=== PATIENT | female | born 1985 | race Hispanic/Latino ===

== ENCOUNTER 2016-11-10 08:06 | Day surgery (SDC) | payer OTHER ==
[2016-11-10] VITALS (10 sets, daily range): BP systolic 111–141; BP diastolic 64–95; PULSE 78–108; RESP 12–16; O2SAT 93–99
[~2016-11-10] VITALS: Ht 157.5 cm; Wt 101.9 kg
[~2016-11-10 08:06] MED LIST: CeFAZolin Inj 2 GM in IV Premix 1 EACH IV ONE; DIAZ5TAB3 PO; DULO60CA61 PO; Lactated Ringer's 1,000 ML IV ONE; OXYC-465 PO
[2016-11-10] MEDS ORDERED: Phenylephrine/NS 100 mCg/mL 10 mL Syringe IVPUSH ONE (08:07)
[2016-11-10] MEDS ORDERED: Dexamethasone 4 mg/mL Inj ONE (08:07)
[2016-11-10] MEDS ORDERED: Propofol 10,000 mCg/mL 20 mL Inj ONE (08:07)
[2016-11-10] MEDS ORDERED: fentaNYL-PF 50 mCg/mL 2 mL Inj ONE (08:07)
[2016-11-10] MEDS ORDERED: Ondansetron 2 mg/mL 2 mL Inj ONE (08:07)
[2016-11-10] MEDS ORDERED: Lactated Ringer's 500 ML IV PRN (10:46)
[2016-11-10] MEDS ORDERED: Lactated Ringer's 1,000 ML IV SCH (10:46)
--- NOTE | 2016-11-10 10:46 | PCM.HPANE ---
Patient Data Date of Service: Nov 10, 2016 (1020) Surgeon Admitting Provider: Attending Provider:Negro Foster DO Primary Care Physician:Alberto Bailey MD Other Provider:Refugio Mulligan Anesthesia Reason for Visit Right Hip Avn Ht/WT & BMI Height (Feet): 5 Height (Inches): 2 Weight (Kilograms): 101.9 Body Mass Index 0.00 Allergies Coded Allergies: No Known Allergies (Unverified Allergy, Unknown, 09/13/14) Past Anesthesia History Anesthesia History: Denies:: Abnormal Airway, Anesthesia Reactions (no prior surgery), Difficult Intubation, Fam Anesthesia Reaction Diabetes History Hx Diabetes?: No MRSA MRSA: No Medications Hypertension Medication: No Home Meds Incl Beta Albina: No Reported Medications oxyCODONE-Acetaminophen 7.5-325 mg 1 Each Tablet1 Tab PO TID PRN For Pain Ref 0 11/05/16 Diazepam 5 Mg Tablet5 Mg PO BID PRN For Anxiety Ref 0 11/05/16 Duloxetine 60 Mg Capsule.dr60 Mg PO DAILY Ref 0 11/05/16 Discontinued Reported Medications Vit#96/Ferrous Fum/FA ( Tablet)1 Each Tablet1 Each PO DAILY 09/15/14 Discontinued Scripts [Hydrocodone/Acetaminophen] ([place] 5-325)1 TAB TABLET No Conflict Check1-2 Tab PO Q4H PRN For Pain #15 TABLET Prov:Veronica Crockett MD 09/16/14 [Ibuprofen] (Motrin)800 MG TABLET No Conflict Froql030 Mg PO Q6H PRN For Pain # 15 TABLET Prov:Veronica Crockett MD 09/16/14 History History of ENT Problems?: No HEENT History: Denies:: Abnormal Airway Cataracts Difficult Intubation Dysphagia Glaucoma Hearing Problem Sinus Problem TMJ Hx of Heart Problems?: No Cardiovascular History: Denies:: AICD Abdominal Aortic Aneurism Atrial Fibrillation Edema Heart Murmur Hypertension (only during ) Irregular Heartbeat Pacemaker Peripheral Vascular Hx of Respiratory Problem?: No Respiratory History: Denies:: Asthma COPD Emphysema Oxygen Administration Pneumonia Tuberculosis Use of C-PAP Machine Use of Inhalers / NEBS Hx Neurologic Problems?: No Neurological History: Positive for:: Headaches (several times weekly) Denies:: Alzheimer's Disease CVA Dementia Dizziness Multiple Sclerosis Parkinson's Disease Seizures TIA Hx of GI Problems?: No Gastrointestinal History: Denies:: Cirrhosis Gall Bladder Disease Gastrointestinal Bleeding Heartburn Hepatitis Hiatal Hernia Liver Disease Rectal Bleeding Hx of Problems?: No Genitourinary History: Denies:: Kidney Stones Urinary Tract Infection Female Hx: Denies:: Currently Problems with Breasts? Skin History: Denies:: History Skin Disorders? Pressure Ulcers Hx Musculoskeletal Problems?: Yes Musculoskeletal History: Positive for:: Back Injury Degenerative Joint Musculoskeletal Trauma (right hip current admission problem- AVN) Denies:: Fibromyalgia Osteoarthritis Rheumatoid Arthritis Hx of Psycho/Social Problems?: Yes Psycho Social History: Positive for:: Anxiety Hx Depression Hx Surgeries?: No Hx Any Other Health Problems?: No Other History: Denies:: Cancer Thyroid Disease History Blood Transfusions: Positive for:: Accept Blood Products? Denies:: Blood Transfusions Hx Diabetes: No Hx Alcohol Use: YesAlcoholic Drinks Per Day: holidaysHx Substance Use: No Smoking Status: Never Smoker Have You Smoked inLast 12 mo: Yes (3 cigarettes daily) Stop/Bang S-Snoring: Do You Snore Loudly: No T-Tired: feel tired, fatigued: Yes O-Obsered: Observed not breath: No P-Blood Pressure: treated: No B- Body Mass Index > 35 kg/m2: Yes A- Age over 50: No N- Neck Large Circumference: Yes G- Gender Male: No VIMAL Total Score: 3 VIMAL Risk Assessment: Low Risk, <3 Yes Risk Assessment Category Category 1A: Patient has history of documented sleep apnea, and HAS NOT received any narcotic, sedative or anesthesia administration during this stay. Category 1B: Patient has history of documented sleep apnea, and HAS received any narcotic , sedative or anesthesia administration during this stay Category 2: Patient has SUSPECTED Obstructive Sleep Apnea, and HAS received any narcotic , sedative or anesthesia administration during this stay. Category 3: Patient has SUSPECTED Obstructive Sleep Apnea and HAS NOT received narcotic, sedative or anesthesia administration during this stay. Category 4: Outpatient in Procedural Areas with known sleep apnea or who screen positive for High Risk via the STOP/BANG questionnaire. Exam Exam Vital Signs Vital Signs Date Time Temp Pulse Resp B/P Pulse Ox O2 Delivery O2 Flow Rate FiO2 11/10/16 08:29 36.2 87 16 120/74 98 Room Air General Appearance: Alert, Oriented X3, Cooperative HEENT/AIRWAY: MP 2 Lungs: Clear to Auscultation Heart: Exam Unremarkable Meds/Labs/Diagnostics Admission Meds Current Medications Lactated Ringer's (Lr) 1,000 ml @ 120 mls/hr Q8H20M ONCE IV Last administered on 11/10/16t 08:29; Start 11/10/16 at 05:00; Stop 11/10/16 at 13:19 Plan Impression Patient chart reviewed, patient interviewed and anesthestic plan with risks, benefits, and alternatives discussed, and informed consent obtained. NPO Status: 2330 11/09 ASA Physical Status: ASA2 Mod Systemic Disease Anesthetic Plan: GA Bene/Risks/Altern/Consents: Yes HP Complete Prior to Induction: Yes Alistair Patiño MD Nov 10, 2016 10:46
[2016-11-10] MEDS ORDERED: Phenylephrine 10,000 mCg/mL Inj IVPUSH PRN (10:50)
[2016-11-10] MEDS ORDERED: EPHEDrine Sulfate 50 mg/mL Inj IVPUSH PRN (10:50)
[2016-11-10] MEDS ORDERED: Ondansetron 2 mg/mL 2 mL Inj IVPUSH PRN (10:50)
[2016-11-10] MEDS ORDERED: Dexamethasone 4 mg/mL Inj IVPUSH PRN (10:50)
[2016-11-10] MEDS ORDERED: MetoCLOpramide 5 mg/mL 2 mL Inj IVPUSH PRN (10:50)
[2016-11-10] MEDS ORDERED: Ropivacaine-PF 0.5% 30 mL Inj INFILTRATE ONE (11:00)
--- NOTE | 2016-11-10 11:59 | PCM.ANEP2 ---
Post Anesthesia Evaluation ASA/CMS Post Anesthesia VS in Patient's Normal Range?: Yes Resp Stable; Airway Patent?: Yes CV Function & Hydration Stable: Yes Mental Status Recovered?: Yes Pain control Satisfactory?: Yes N/V Control Satisfactory?: Yes Alistair Patiño MD Nov 10, 2016 11:59
--- NOTE | 2016-11-10 11:59 | PCM.ANEP1 ---
Post Anesthesia Phase 1 PACU Phase 1 Assessment Date of Service: Nov 10, 2016 (1020) Vital Signs 141/95, 94%, 100, 16, 36.4 Vital Signs Date Time Temp Pulse Resp B/P Pulse Ox O2 Delivery O2 Flow Rate FiO2 11/10/16 08:29 36.2 87 16 120/74 98 Room Air Anesthetic Administered: GA Level of Alertness: Awake, talking PETERSON's with Equal Strength: Yes Pain: No Nausea or Vomiting: No Oxygen Delivery: Simple Mask Lungs: Clear to Auscultation Dermatome Level: Full Sensation Summary UNEVENTFUL GA Alistair Patiño MD Nov 10, 2016 11:58
[2016-11-10] MEDS: fentaNYL-PF 50 mCg/mL 2 mL Inj IVPUSH PRN ×2 (12:00→12:15)
[2016-11-10] MEDS: HYDROmorphone 1 mg/mL Inj IVPUSH PRN ×3 (12:00→12:25)
[2016-11-10] MEDS ORDERED: hydrOXYzine Pamoate 25 mg Capsule PO PRN (12:10)
[2016-11-10] MEDS ORDERED: oxyCODONE-Acetamin 10-325 mg Tablet PO PRN (12:10)
--- NOTE | 2016-11-10 14:05 | NUR ---
Evaluation completed. Please go to "Notes" then click on "Assessments and Notes" (bottom left corner of screen). Then select appropriate discipline tab on top of screen.
--- NOTE | 2016-11-11 00:10 | OP ---
[address] [address] OPERATIVE REPORT PATIENT: JODI TRIANA : 1985 MR#: [id number] ADMIT: 11/10/2016 JOB ID: [id number] DATE OF SURGERY: 11/10/2016 PREOPERATIVE DIAGNOSIS(ES): Right hip avascular necrosis. POSTOPERATIVE DIAGNOSIS(ES): Right hip avascular necrosis. PROCEDURE: Right hip drilling/cord decompression. SURGEON: Negro Foster DO. COOKER CLEANER: None. INDICATIONS: The patient is a 30-year-old female who developed right hip pain during about two years ago, has continued to have problems with pain in the hip and groin, and has been having to take narcotic pain medication for this. She had an AVN which was consistent with hip avascular necrosis. We discussed treatment options for this and she would like to proceed with hip drilling/cord decompression in order to promote blood flow and revascularization of the femoral head. We discussed the risks, benefits and possible complications of surgery including, but not limited to, injury to nerves and vessels, infection, bleeding, incomplete relief of symptoms, stiffness, need for additional procedures. The patient had good understanding. All questions were answered. She wished to proceed. PROCEDURE IN DETAIL: The patient was brought to the operating room. She was given a preoperative antibiotic and general anesthetic. Placed onto the fracture table. The right hip was sterilely prepped and draped. An incision was made over the lateral hip and dissection was carefully carried through subcutaneous tissue. The iliotibial band was incised in line with skin incision. Dissection was carried down onto the femur. Care was taken to ensure that the pins were placed superior to the lesser trochanter and these were angled so as to penetrate on the posterior lateral cortex of the femur and enter into the anterior superior portion, where she had the avascular necrosis. The area of avascular necrosis was actually visible on image intensification to some degree more so than on her MRI scan, and I aimed three guide pins into this area using biplane fluoroscopy. I then over-reamed with the 7.3 cannulated screw set drill on two of the three pins. The third most anterior one I was concerned about perforating the cortex of the femoral neck and elected not to ream, but did feel that the pin entered into the area of avascular necrosis; and therefore, we created new vascular channels for inflow and healing. The pins were removed. The wound was irrigated and then closed with 0-Vicryl to close the iliotibial band, the subcu was closed with 2-0 Vicryl, and the skin was closed with rosalinda. Naropin was added as an adjunct local anesthetic. Sterile dressings were applied. Patient tolerated the procedure well. Blood loss was 50 cc. POSTOPERATIVE PROTOCOL: I would like the patient to remain toe-touch weightbearing on the right lower extremity for a period of six weeks. She should have no alcohol or tobacco, and no anti-inflammatories for at least six weeks, preferably three months. She was given a prescription for Percocet 10/325 for pain.
== END 2016-11-10 23:59 | disposition home or self-care (01) ==
LOC: SAS 08:06
PROVIDERS: ATTEND Orthopaedic Surgery
DX: M87.051 Idiopathic aseptic necrosis of right femur (principal)
CPT/HCPCS: 76001; 97161; J0690; J1100; J1170; J2250; J2370; J2405; J2795; J3010; J7120; Q0177; S2325

== ENCOUNTER 2016-12-09 17:42 | Inpatient (IN) | payer OTHER ==
[~2016-12-09] VITALS: Ht 160 cm; Wt 105.5 kg
[~2016-12-09 17:42] MED LIST changes: -CeFAZolin Inj 2 GM in IV Premix 1 EACH IV ONE; -Lactated Ringer's 1,000 ML IV ONE
[2016-12-09 17:50] VITALS: BP 149/102; PULSE 108; RESP 22; O2SAT 99
[2016-12-09] MEDS ORDERED: Ondansetron 2 mg/mL 2 mL Inj IVPUSH ONE (18:25)
[2016-12-09 18:35] LABS: BASOPHILS % (AUTO) 0.3 % (0-3); EOSINOPHILS % (AUTO) 3.8 % (0-5); MONOCYTES % (AUTO) 5.1 % (4-12); Mean Corpuscular Hemoglobin 29.2 pg (27.0-35.0); Mean Corpuscular Volume 86.8 fL (81-100); NEUTROPHILS % (AUTO) 55.4 % (40-74); Platelet Count 284 bil/L (150-400)
--- NOTE | 2016-12-09 18:35 | ED.REPORT ---
HPI-Hip/Pelvis Prob/Inj Date of Service Dec 09, 2016 ED Provider: Thuan Mcqueen MD A 30 year old female with a history of right avascular necrosis presents to the ED via EMS complaining of pain in her right hip onset earlier this evening. The patient was putting their son in their car seat when he stood up and was going to fall out of the car. The patient bent over to catch her son and suddenly heard a popping noise. She could not move her right hip after that. Her right hip hurts most at the top. She denies any numbness or tingling. The patient last ate this morning and did not have any lunch or dinner. She denies any other major medical problems. The patient had a right hip drooling and cord compression 11/10/2016. She has been taking percocet and Diazepam since the surgery. She normally takes cymbalta for depression. Nursing Notes Stated Complaint: HIP DISLOCATION Chief Complaint: Extremity Trauma Nursing Notes Reviewed: Yes ([facility] not recnciled) Allergies: Coded Allergies: No Known Allergies (Unverified Allergy, Unknown, 12/09/16) Scheduled Duloxetine (Duloxetine) 60 Mg Capsule.dr 60 MG PO DAILY Scheduled PRN Diazepam (Diazepam) 5 Mg Tablet 5 MG PO BID PRN PRN For Anxiety oxyCODONE-Acetaminophen 10-325 mg (oxyCODONE-Acetaminophen 10-325 mg) 1 Each Tablet 1 TAB PO Q6 HOURS PRN PRN For Pain General Time Seen by Provider: 18:24 Chief Complaint Hip pain right Hx Obtained From: Patient, EMS Arrived By: Ambulance Onset Occurred: 1 - 4 hours ago Symptom Duration: Since onset Severity: Current: Severe Severity: Maximum: Severe Recent Healthcare: Recent doctor visit Similar Sx Previous: No Past Medical History Past Medical History Right avascular necrosis History of headaches Denies: Coronary artery disease, Diabetes mellitus Past Surgical History Right hip drilling and cord compression 11/10/2016 Smoking History Never Smoker Social History Alcohol Use: "Social" Drug Use: Denies drug use Review of Systems Review of Systems Note: Denies any tingling. Musculoskeletal: Reports: Extremity pain (right hip) Neurologic: Denies: Numbness Complete sys rev & neg: except as marked. Physical Exam Initial Vital Signs Vital Signs (First) Date Time Temp Pulse Resp B/P Pulse Ox O2 Delivery O2 Flow Rate FiO2 12/09/16 17:50 36.9 108 22 149/102 99 Room Air Initial VS: Reviewed, Vital signs normal Right Hip: Positive: Tenderness present... (Pain around right hip. Extreme pain with any movement. ) General/Constitutional: Awake, Alert Patient is in severe pain and is partially sedated. Head / Eyes: Atraumatic, Normocephalic, PERRL, EOMI Respiratory / Chest: Atraumatic, Breath sounds NL, Breath sounds = bilat, No respiratory distress, No rales, No rhonchi, No wheezing Cardiovascular: Heart rate NL, Regular rhythm, Heart sounds NL, No gallop, No murmurs, No rubs Abdomen: Atraumatic, No guarding, No rebound Skin: Atraumatic, Warm, Dry No open wounds. Neurologic Neurologic: Oriented X3, Speech NL Neurovascularly intact. ENT: Atraumatic, Mucous membranes moist Upper Extremity / MS: No swelling, No edema Wrist / Hand: No swelling, No edema Ankle / Foot: No swelling, No edema Interpretation & Diagnostics Lab Results Interpretation Result Diagram: 12/09/16 1753 12/09/16 1753 Test 12/09/16 17:53 White Blood Count 11.9th/mm3 (3.8-10.1) Red Blood Count 4.69mil/mm3 (3.90-5.20) Hemoglobin 13.7g/dL (12.0-15.6) Hematocrit 40.7% (35.0-46.0) Mean Corpuscular Volume 86.8fL (81-100) Mean Corpuscular Hemoglobin 29.2pg (27.0-35.0) Mean Corpuscular Hemoglobin Concent 33.7% (32.0-37.0) Red Cell Distribution Width 13.8% (12.3-15.4) Platelet Count 284bil/L (150-400) Neutrophils (%) (Auto) 55.4% (40-74) Lymphocytes (%) (Auto) 35.1% (14-46) Monocytes (%) (Auto) 5.1% (4-12) Eosinophils (%) (Auto) 3.8% (0-5) Basophils (%) (Auto) 0.3% (0-3) Hold Purple Top Tube Received (Received) Hold Blue Top Tube Received (Received) Sodium Level 136mEq/L (134-144) Potassium Level 3.9mEq/L (3.5-5.2) Chloride Level 98mEq/L (97-108) Carbon Dioxide Level 21mmol/L (18-29) Blood Urea Nitrogen 7mg/dL (6-20) Creatinine 0.63mg/dL (0.57-1.00) Estimat Glomerular Filtration Rate 158mL/min (>59) Glucose Level 89mg/dL (60-99) Calcium Level 9.3mg/dL (8.5-10.1) Total Bilirubin 0.2mg/dL (0.0-1.2) Aspartate Amino Transf (AST/SGOT) 16U/L (0-50) Alanine Aminotransferase (ALT/SGPT) 11U/L (0-32) Alkaline Phosphatase 86U/L (25-150) Total Protein 7.9g/dL (6.4-8.4) Albumin 4.4g/dL (3.4-5.0) Human Chorionic Gonadotropin, Qual Negative (Negative) Hold Red Top Tube Received (Received) Hold [place] Top Tube Received (Received) Lab Results Interpretation: CBC mild leukocytosis and CMP normal negative X-Ray Interpretation Xray Interpretation: PROCEDURE: X-RAY PELVIS W/LAT HIP (RT) ([id number]) IMPRESSION: 1. Displaced and angulated subtrochanteric fracture of the proximal right femur. Dictated by: Venkatesh Perez M.D. on 12/09/2016 at 19:08 Approved by: Venkatesh Perez M.D. on 12/09/2016 at 19:09 Re-Eval/Medical Decision Med Decision/Clinical Course This is a 30-year-old female who presents with acute onset of right hip pain. She is status post a procedure last month by Dr. Harris in the OR for avascular necrosis of the right hip, which she was bending over to suddenly catcher kid was falling out of a car seat of a pop and collapsed to the floor in extreme pain. She was in severe pain, required ketamine administration for pain management to be able to mobilize to get her into a stretcher and get her to the emergency department. She still in severe pain. She denies sterilely right leg. However it is neurovascular intact with no open wounds. She has no other injuries. Multiple titrated pain medicines and remain in severe pain despite this. She is placed on end-tidal CO2 monitoring, but demonstrated no problems with respiratory depression. Radiographs are obtained and demonstrate a right displaced subtrochanteric hip/ proximal femur fracture. Patient's previous procedures done by Dr. Foster. I discussed the case with the on-call orthopedist, plan is admission, nothing by mouth, pain control, with surgical repair anticipated for tomorrow. The patient did receive a dose of sub-disassociative ketamine 20 mg as an adjunct given pain medicines and ongoing pain, a DIGITAL EXPERIENCE MANAGER is indicated. A Chaney is being placed. Source of Hx: Old records, EMS Re-Evaluation/Progress : Time of Eval: 19:21 Re-Evaluation/Progress Note: Rechecked patient, explained fracture XRayresults, and need for admission and surgery. Patient understands and agrees with the plan. All questions addressed. Consultation #1: Referral / Consult Name: Alberto Azul MD Call Returned at: 19:29 It Systems Analyst: Agrees with eval, Agrees with plan, Accepts admit Note: Discussed patient case with Dr. Azul. Patient will have surgery tomorrow. Consultation #2: Referral / Consult Name: Sherif Chan MD Consulted With: Hospitalist Call Returned at: 20:12 It Systems Analyst: Agrees with eval, Agrees with plan, Accepts admit Note: Discussed patient case with Dr. Chan who accepts patient admit. Differential Diagnosis: Positive: Fx subtrochanteric, Negative: Abrasion, Abscess, Deep vein thrombosis, Dislocation hip, anterior , Dislocation hip, posterio Counseled Regarding: Diagnosis, Lab results, Need for admission Discharge & Departure Impression: Primary Impression: Subtrochanteric fracture of right femur Encounter type: initial encounter Fracture type: closed Qualified Code: S72.21XA - Displaced subtrochanteric fracture of right femur, initial encounter for closed fracture Disposition: ADMITTED TO HOSPITAL Discharge Condition All VS Reviewed: Yes Condition: Improved Referrals: Alberto Bailey MD (PCP) Kayleenibeula Attestation Portions of this note were transcribed by Fransisco Francis. I, Dr. Mcqueen personally performed the history, physical exam and medical decision-making; I reviewed and confirmed the accuracy of the information in the transcribed note. Signed by: Alfa Rutledge, 12/09/[id number]. copies to: Alberto Bailey MD, Matthew F MD Dec 09, 2016 18:35 Fransisco Francis Dec 09, 2016 19:24
[2016-12-09] MEDS: HYDROmorphone 0.5 mg/0.5 mL iSecure Syringe IVPUSH PRN ×5 (18:40→21:12)
[2016-12-09] MEDS ORDERED: HYDROmorphone 1 mg/mL Inj IVPUSH PRN (18:40)
--- NOTE | 2016-12-09 19:15 | DRSVH ---
PROCEDURE: X-RAY PELVIS W/LAT HIP (RT) ([id number]) INDICATIONS: Pain TECHNIQUE: AP pelvis with frontal and lateral views of the right hip. COMPARISON: None. FINDINGS: Bones: There is a subtrochanteric fracture of the proximal right femur with posterior displacement o f the distal component as well as mild proximal migration. There is anterior angulation of the proxi mal component. Soft tissues: The visualized bowel gas pattern is normal. There is an IUD within the pelvis. IMPRESSION: 1. Displaced and angulated subtrochanteric fracture of the proximal right femur. Dictated by: Venkatesh Perez M.D. on 12/09/2016 at 19:08 Approved by: Venkatesh Perez M.D. on 12/09/2016 at 19:09
[2016-12-09 19:42] VITALS: BP 142/82; PULSE 82; RESP 18; O2SAT 99
[2016-12-09] MEDS ORDERED: HYDROmorphone 0.5 mg/0.5 mL iSecure Syringe IVPUSH PRN (20:20)
[2016-12-09] MEDS ORDERED: Polyethylene Glycol (PEG) 17 Gm Powder PO PRN (20:20)
[2016-12-09] MEDS ORDERED: Alum-Mag Hydrox-Simeth 30 mL Suspension PO PRN (20:20)
[2016-12-09] MEDS ORDERED: Ondansetron 2 mg/mL 2 mL Inj IVPUSH PRN (20:20)
[2016-12-09] MEDS ORDERED: HYDROcodone-APAP 5-325 mg Tablet PO PRN (20:20)
[2016-12-09] MEDS ORDERED: Ketamine 10 mg/mL 20 mL Inj IV ONE (20:35)
[2016-12-09] MEDS ORDERED: MetoCLOpramide 5 mg/mL 2 mL Inj IVPUSH PRN (20:45)
[2016-12-09] MEDS ORDERED: Lidocaine 2% 5 mL Urojet Topical Jelly Syringe MUC_MEMBRM ONE (20:55)
[2016-12-09] MEDS ORDERED: OXYC-466 PO (21:05)
[2016-12-09] MEDS: 0.9% Sodium Chloride 1,000 ML IV SCH (21:21)
[2016-12-09] MEDS: HYDROmorphone PCA 0.2 mg/mL 30 mL Inj IV PRN (21:30)
--- NOTE | 2016-12-09 21:35 | PCM.CONORT ---
Subjective Date of Surgery: Dec 09, 2016 Surgeon Admitting Provider:Jd Waite MD Attending Provider:Jd Waite MD Primary Care Physician:Alberto Bailey MD Other Provider: Reason for Consultation: right hip pain Allergy Allergies: Coded Allergies: No Known Allergies (Unverified Allergy, Unknown, 12/09/16) Medications Diazepam (Diazepam) 5 Mg Tablet 5 MG PO BID PRN PRN For Anxiety (Reported) Last Taken: Unknown Dose on 12/09/16 Duloxetine (Duloxetine) 60 Mg Capsule.dr 60 MG PO DAILY (Reported) Last Taken: Unknown Dose on 12/09/16 oxyCODONE-Acetaminophen 10-325 mg ( oxyCODONE-Acetaminophen 10-325 mg) 1 Each Tablet 1 TAB PO Q6 HOURS PRN PRN For Pain (Reported) Last Taken: Unknown Dose on 12/09/16 Discontinued Medications oxyCODONE-Acetaminophen 7.5-325 mg (oxyCODONE-Acetaminophen 7.5-325 mg) 1 Each Tablet 1 TAB PO TID PRN PRN For Pain (Reported) History History of ENT Problems?: No HEENT History: Denies:: Abnormal Airway Cataracts Difficult Intubation Dysphagia Hearing Problem Sinus Problem TMJ Hx of Heart Problems?: No Cardiovascular History: Denies:: AICD Abdominal Aortic Aneurism Atrial Fibrillation Edema Heart Murmur Hypertension (only during ) Irregular Heartbeat Pacemaker Hx of Respiratory Problem?: No Respiratory History: Denies:: Asthma COPD Emphysema Oxygen Administration Pneumonia Tuberculosis Use of C-PAP Machine Hx Neurologic Problems?: No Neurological History: Positive for:: Headaches (several times weekly) Denies:: Alzheimer's Disease CVA Dementia Dizziness Multiple Sclerosis Parkinson's Disease Seizures Hx of GI Problems?: No Gastrointestinal History: Denies:: Cirrhosis Gastrointestinal Bleeding Heartburn Hepatitis Hiatal Hernia Rectal Bleeding Hx of Problems?: No Genitourinary History: Denies:: Kidney Stones Urinary Tract Infection Female Hx: Denies:: Currently Problems with Breasts? Skin History: Denies:: History Skin Disorders? Pressure Ulcers Hx Musculoskeletal Problems?: Yes Musculoskeletal History: Positive for:: Back Injury Degenerative Joint Musculoskeletal Trauma (right hip current admission problem- AVN) Other History/Comment Juliette Ortiz is a 30 year old female with a history of right avascular necrosis who presents to the ED complaining of pain in her right hip today. She reports putting her son in their car seat after which he stood up and the patient bent over to catch her son as he was about to fall. She reports hearing a popping noise from her right hip. She reports anterior and lateral hip pain. She denies any numbness or tingling or weakness to her distal lower extremity. She has a hx of right hip drilling with core decompression by Dr. Foster on 11/10. She has been taking percocet and Diazepam since the surgery and was instructed to be TTWB but has been ambulating. She as a hx of depression currently on Cymbalta. Hx of Psycho/Social Problems?: Yes Psycho Social History: Positive for:: Anxiety Hx Depression Hx Surgeries?: No Hx Any Other Health Problems?: No Other History: Denies:: Cancer Thyroid Disease History Blood Transfusions: Denies:: Blood Transfusions Hx Diabetes: Yes (R hip pinning) Hx Alcohol Use: YesHx Substance Use: No Smoking Status: Never Smoker Have You Smoked inLast 12 mo: Yes (3 cigarettes daily) Objective Exam Vital Signs & I/O Vital Sign- Last 8 Hours Date Time Temp Pulse Resp B/P Pulse Ox O2 Delivery O2 Flow Rate FiO2 12/09/16 19:42 82 18 142/82 99 Room Air 12/09/16 17:50 36.9 108 22 149/102 99 Room Air Lab & Micro Results Laboratory Tests Test 12/09/16 17:53 12/09/16 20:47 White Blood Count 11.9th/mm3 (3.8-10.1) Red Blood Count 4.69mil/mm3 (3.90-5.20) Hemoglobin 13.7g/dL (12.0-15.6) Hematocrit 40.7% (35.0-46.0) Mean Corpuscular Volume 86.8fL (81-100) Mean Corpuscular Hemoglobin 29.2pg (27.0-35.0) Mean Corpuscular Hemoglobin Concent 33.7% (32.0-37.0) Red Cell Distribution Width 13.8% (12.3-15.4) Platelet Count 284bil/L (150-400) Neutrophils (%) (Auto) 55.4% (40-74) Lymphocytes (%) (Auto) 35.1% (14-46) Monocytes (%) (Auto) 5.1% (4-12) Eosinophils (%) (Auto) 3.8% (0-5) Basophils (%) (Auto) 0.3% (0-3) Hold Purple Top Tube Received (Received) Hold Blue Top Tube Received (Received) Sodium Level 136mEq/L (134-144) Potassium Level 3.9mEq/L (3.5-5.2) Chloride Level 98mEq/L (97-108) Carbon Dioxide Level 21mmol/L (18-29) Blood Urea Nitrogen 7mg/dL (6-20) Creatinine 0.63mg/dL (0.57-1.00) Estimat Glomerular Filtration Rate 158mL/min (>59) Glucose Level 89mg/dL (60-99) Calcium Level 9.3mg/dL (8.5-10.1) Total Bilirubin 0.2mg/dL (0.0-1.2) Aspartate Amino Transf (AST/SGOT) 16U/L (0-50) Alanine Aminotransferase (ALT/SGPT) 11U/L (0-32) Alkaline Phosphatase 86U/L (25-150) Total Protein 7.9g/dL (6.4-8.4) Albumin 4.4g/dL (3.4-5.0) Human Chorionic Gonadotropin, Qual Negative (Negative) Hold Red Top Tube Received (Received) Hold [place] Top Tube Received (Received) Hold Urine Received (Received) Result Diagram: 12/09/16175212/09/161752 Review of Systems: Constitutional: Negative, except as otherwise mentioned in the history above. Ophthalmologic: Negative, except as otherwise mentioned in the history above. Cardiovascular: Negative, except as otherwise mentioned in the history above. Respiratory: Negative, except as otherwise mentioned in the history above. Gastrointestinal: Negative, except as otherwise mentioned in the history above. Genitourinary: Negative, except as otherwise mentioned in the history above. Musculoskeletal: Negative, except as otherwise mentioned in the history above. Neurological: Negative, except as otherwise mentioned in the history above. Psychiatric: Negative, except as otherwise mentioned in the history above. Hematologic/Lymphatic: Negative, except as otherwise mentioned in the history above. Allergic/Immunologic: Negative, except as otherwise mentioned in the history above. H&P Surgical Exam Exam Musculoskeletal: CONST: WD,WN, NAD, A+OX3 OCULAR: EOMI, no conjunctivitis/icterus ENT: no deformities, scars or lesions CARDIAC: Pulse is regular. No cyanosis,clubbing,edema RESP: regular,unlabored MSK: normal light touch SPN/DPN/TN distributions. 4+/5 DF/PF/Inv/Ev, 2+ DP right HIP - scars. mild swelling, - erythema - atrophy or asymmetry. TTP anteriorly and laterally, GT- mild, shortened, externally rotated ROM logroll- painful Strength deferred - calf tenderness Additional Information 2 views of the right hip demonstrate postoperative changes with subtrochanteric femur fracture H&P Preop Plan Impression right hip subtrochanteric fracture s/p core decompression on 11/10/16 Problems: Risks & Benefits * We have reviewed the risks and benefits as well as the alternatives to surgery. All questions were answered to the patient's satisfaction and a counseling note to that effect. The patient has provided informed consent. * I have counseled the patient regarding the deleterious effects that smoking during the perioperative period can have upon wound healing, infection rates, and the overall rate of complications. Plan NWB RLE NPO after midnight for CRIMN tomorrow oral pain meds as needed recommend MRI with contrast of right hip to r/o pathologic fx continue medical management per primary please call with questions Alberto Azul MD Dec 09, 2016 21:35
[2016-12-09 21:44] VITALS: BP 143/91; PULSE 77; RESP 18; O2SAT 97
[2016-12-09 21:56] VITALS: RESP 18; O2SAT 97
[2016-12-09 22:04] VITALS: PULSE 76
--- NOTE | 2016-12-09 22:25 | PCM.HPMED ---
Subjective Date of Service Dec 09, 2016 Primary Provider: Admitting Physician: Jd Waite MD Primary Care Physician: Alberto Bailey MD Attending Physician: Jd Waite MD Admit Status: From the Emergency Department, Non-Telemetry Chief Complaint: Right hip pain History of Present Illness: Ms. Juliette Ortzi is a 30 year old morbidly obese female with a history of right avascular necrosis presents to the ED via EMS complaining of pain in her right hip onset prior to arrival. The patient was putting their son in their car seat when he stood up and was going to fall out of the car. The patient bent over to catch her son and suddenly heard a popping noise. She could not move her right hip after that and has been in excruciating pain. Her right hip hurts most at the groin and lateral side with radiation to the back. She denies any numbness or tingling, but reports to be very sensitive to pain on the right foot. The patient last ate this morning and did not have any lunch or dinner. She denies any other symptoms other than severe pain at this time. The patient developed the right hip pain during about 2.5 years ago. She developed trouble walking and has had pain in the groin since that time. She has had treatment for back arthritis and injections without benefit. Earlier in the year, she was found to have avascular necrosis on the MRI scan and recently underwent a hip core decompression by Dr. Foster on 11/10/2016 She is supposed to be nonweight bearing for 6 weeks postoperatively, but has not been compliant. She uses crutches to get around and takes Percocet 10mg Q6H after the surgery. She also takes Diazepam 5mg BID and Duloxetine 60mg daily for anxiety/depression. She starts smoking 1/2 pack per day. Denies any alcohol or illicit drug use. En route to the ED, she was given a dose of Ketamine 200mg and it made her groggy. The ED gave her several doses of Dilaudid and a dose of Ketamine 20mg IV , which only mildly controlled the pain. Patient was found to have a displaced and angulated subtrochanteric fracture of the proximal right femur on XR. Dr. Azul (orthopedics) was consulted and agreed with surgery in the morning. Review of Systems: A comprehensive review of systems was conducted with the patient and found to be negative except as above in the History of Present Illness. Allergies Coded Allergies: No Known Allergies (Unverified Allergy, Unknown, 12/09/16) Home Medications Scheduled Duloxetine (Duloxetine) 60 Mg Capsule.dr 60 MG PO DAILY Scheduled PRN Diazepam (Diazepam) 5 Mg Tablet 5 MG PO BID PRN PRN For Anxiety oxyCODONE-Acetaminophen 10-325 mg (oxyCODONE-Acetaminophen 7.5-325 mg) 1 Each Tablet 1 TAB PO Q6H PRN For Pain PMH Right avascular necrosis History of headaches Denies: HTN, Coronary artery disease, Diabetes mellitus Surgical History Right hip drilling and hip core decompression on 11/10/2016 Family History Significant family history of DM in her father's side. Social History Hx Alcohol Use: Yes (occasionally) Hx Substance Use: No Smoking Status: Current Every Day Smoker (1/2 ppd) Living Arrangement: with Family Exam Vital Signs Vital Sign - Last Date Time Temp Pulse Resp B/P Pulse Ox O2 Delivery O2 Flow Rate FiO2 12/09/16 19:42 82 18 142/82 99 Room Air 12/09/16 17:50 36.9 Exam General: Morbidly obese woman, lying uncomfortably on bed. Screaming/crying in pain. HEENT: Normocephalic, atraumatic. External ears without defect. Pupils equal, round, and reactive to light and accommodation. Anicteric sclerae, moist conjunctivae, and no lid lag. Oropharynx free of erythema and cobble stoning with moist mucosa. Neck: Supple with full range of motion. No jugular venous distension. No lymphadenopathy or thyromegaly. Cardiovascular: Regular rate and rhythm with no murmurs, rubs, or gallops appreciated Pulmonary: Clear to auscultation bilaterally with no crackles, wheezes, or rhonchi. Normal respiratory effort with no use of accessory muscles. Abdomen: Bowel tones present. Soft, nontender, nondistended. No hepatosplenomegaly or masses appreciated. Extremities: No clubbing, cyanosis, edema, or lymphadenopathy appreciated. Right hip: no gross deformity noted on the right hip. No warmth or erythema. Very tender to light touch. Skin: Normal temperature, turgor, and texture; no rash, ulcers, or subcutaneous nodules appreciated. Neurological: Cranial nerves grossly intact. Patient refused to go through the rest of neuro exam due to pain. Psychiatric: Normal mood and affect. Alert and oriented to person, place, and time. Lab and Diagnostics Result Diagram: 12/09/16175212/09/161752 X-Rays, CTs and MRIs PROCEDURE: X-RAY PELVIS W/LAT HIP (RT) IMPRESSION: 1. Displaced and angulated subtrochanteric fracture of the proximal right femur. Dictated by: Venkatesh Perez M.D. on 12/09/2016 at 19:08 Approved by: Venkatesh Perez M.D. on 12/09/2016 at 19:09 Assessment & Plan 30 year old morbidly obese female with a history of right avascular necrosis presents to the ED via EMS complaining of pain in her right hip onset prior to arrival and was found to have a right femur fracture. 1. Displaced and angulated subtrochanteric fracture of the right femur, acute, present on admission, active. - XR confirmed the fracture as above. In the setting of avascular necrosis and recent core decompression surgery. - Dr. Azul saw the patient and agreed with surgery tomorrow. - NPO after midnight. - IVF with NS at 100mls/hr. - Reglan PRN nausea - Pain management with Dilaudid BOX BUILDER and 0.5mg IV push Q1H PRN. - Continue Oximetry while on the Dilaudid BOX BUILDER 2. Anxiety and depression, chronic, presume stable. - Continue home Duloxetine and Diazepam PRN. 3. Morbid obesity, chronic. - BMI of 41.2. Advised outpatient follow up. 4. Current every day smoker, chronic. - Advised about smoking and risk of wound healing delay, infection rates, and the overall rate of complications. - Offer Nicotine patch but patient declined. Code status: FULL code. Patient is admitted under inpatient status with expected length of stay greater than 2 midnights due to severity of presenting symptoms, risk of adverse event, and complexity of treatment plan. Pain Evaluation: Pain not Controlled GI Prophylaxis: H2 eran Resuscitation Status: CPR: Attempt Resuscitation Attending Statement The patient was seen and examined together with Dr. Miguel on 12/09 and I agree with the history, exam and plan as outlined in the note above. copies to: Alberto Bailey MD, Ngochanh H DO Dec 09, 2016 22:25 Sherif Chan MD Dec 10, 2016 00:28
--- NOTE | 2016-12-09 22:30 | NUR ---
Arrival on Unit Pt arrives to Rm 1023 on [facility] at 2049 with family in room, transferred to bed from [facility] with 4 assist. MD at bedside and altering medications to PEACE OFFICER dilauded. Chaney cath in place, no dressings to R hip or leg, CS intact. Placed on tele and cpox. Will continue to monitor
[2016-12-10] VITALS (18 sets, daily range): BP systolic 117–152; BP diastolic 77–98; PULSE 78–116; RESP 14–21; O2SAT 93–100
[2016-12-10 07:36] LABS: BASOPHILS % (AUTO) 0.3 % (0-3); EOSINOPHILS % (AUTO) 3.8 % (0-5); MONOCYTES % (AUTO) 8.4 % (4-12); Mean Corpuscular Hemoglobin 29.4 pg (27.0-35.0); Mean Corpuscular Volume 87.5 fL (81-100); NEUTROPHILS % (AUTO) 62.6 % (40-74); Platelet Count 260 bil/L (150-400)
[2016-12-10] MEDS: 0.9% Sodium Chloride 1,000 ML IV SCH ×2 (07:49→21:55)
[2016-12-10] MEDS: DULoxetine 30 mg DR Capsule PO SCH (07:51)
[2016-12-10] MEDS: HYDROmorphone PCA 0.2 mg/mL 30 mL Inj IV PRN (08:16)
--- NOTE | 2016-12-10 10:00 | NUR ---
Pain Pt has standard CUTTER HAND Dilaudid. States she still has a lot of pain, especially if she tries to move. Pain is rated as 9/10. Pt also states that she has a headache. Refilled the pt's ice pack and applied to her right hip area. Also administered two CUTTER HAND loading doses of 0.2 mg each. Reassured pt that she would feel better after surgery. Educated pt and family regarding her surgery and post-op care.
[2016-12-10 11:35] LABS: APPEARANCE,URINE HAZY (CLEAR,HAZY); COLOR,URINE STRAW (YELLOW)
[2016-12-10 11:36] LABS: OCCULT BLOOD,URINE NEGATIVE (NEGATIVE); UROBILINOGEN,URINE NORMAL (NORMAL)
--- NOTE | 2016-12-10 12:47 | NUR ---
Social Work-screening: Data:EMR Reviewed. P si a 30 y/o female who was admitted on 12/09/16 for RT hip fx per H&P. Pt's insurance is [employer] and PCP is Alberto Bailey MD. EMR reviewed. SW met with pt at bedside to discuss discharge planning, SW role explained. Pt is alert and oriented x3. Pt resides at home with her and family where she remains independent with ADLS. Recently pt has been using crutches due to recent surgery. Pt has no HH or SNF history. Pt works at [employer]. SW discussed DPOA/ advanced directive, pt confirms that she has not completed this and is not interested in any information at this time. Pt is scheduled for surgery today and likely will have PT post surgery. SW provided phone number and plan on white board in room. SW to follow up post Surgery and PT for needs. SW will continue to follow. Assessment:Pt who is independent at baseline. Plan:Pt to likely discharge home when medically stable. SW to follow up post PT and surgery. SW will continue to follow. MIGNON Landrum
[2016-12-10] MEDS ORDERED: Lactated Ringer's 1,000 ML IV ONE ×3 (15:32→18:55)
--- NOTE | 2016-12-10 15:58 | NUR ---
Pt off unit Pt transferred to [facility]. [facility]. at 1550 hrs for repair of right hip/femur fracture. Consent signed. Family with pt to [facility]
[2016-12-10] MEDS ORDERED: Ketamine 10 mg/mL 20 mL Inj ONE (16:16)
[2016-12-10] MEDS ORDERED: Phenylephrine/NS-PF 100 mCg/mL 5 mL Syringe IVPUSH ONE (16:16)
[2016-12-10] MEDS ORDERED: Propofol 10,000 mCg/mL 20 mL Inj ONE (16:16)
[2016-12-10] MEDS ORDERED: fentaNYL-PF 50 mCg/mL 2 mL Inj ONE (16:16)
[2016-12-10] MEDS ORDERED: Succinylcholine Chloride 20 mg/mL 5 mL Inj ONE (16:16)
[2016-12-10] MEDS ORDERED: Ondansetron 2 mg/mL 2 mL Inj ONE (16:16)
[2016-12-10] MEDS ORDERED: Dexamethasone 4 mg/mL Inj ONE (16:16)
[2016-12-10] MEDS ORDERED: Neostigmine 1 mg/mL 10 mL Inj ONE (16:16)
[2016-12-10] MEDS ORDERED: Rocuronium 10 mg/mL 5 mL Inj ONE (16:16)
[2016-12-10] MEDS ORDERED: Glycopyrrolate 0.2 MG/ML 1mL Inj ONE (16:16)
[2016-12-10] MEDS ORDERED: HYDROmorphone 2 mg/mL Inj ONE (16:16)
[2016-12-10] MEDS ORDERED: MetoCLOpramide 5 mg/mL 2 mL Inj ONE (16:16)
[2016-12-10] MEDS ORDERED: Lactated Ringer's 1,000 ML IV SCH (17:20)
[2016-12-10] MEDS ORDERED: Dexamethasone 4 mg/mL Inj IVPUSH PRN (17:20)
[2016-12-10] MEDS ORDERED: MetoCLOpramide 5 mg/mL 2 mL Inj IVPUSH PRN (17:20)
[2016-12-10] MEDS ORDERED: Lactated Ringer's 500 ML IV PRN (17:20)
[2016-12-10] MEDS ORDERED: EPHEDrine Sulfate 50 mg/mL Inj IVPUSH PRN (17:20)
[2016-12-10] MEDS ORDERED: HYDROmorphone 1 mg/mL Inj IVPUSH PRN (17:20)
[2016-12-10] MEDS ORDERED: Phenylephrine 10,000 mCg/mL Inj IVPUSH PRN (17:20)
[2016-12-10] MEDS ORDERED: fentaNYL-PF 50 mCg/mL 2 mL Inj IVPUSH PRN (17:20)
[2016-12-10] MEDS ORDERED: Ondansetron 2 mg/mL 2 mL Inj IVPUSH PRN ×2 (17:20→19:10)
--- NOTE | 2016-12-10 17:20 | PCM.HPANE ---
Patient Data Surgeon Admitting Provider:Jd Waite MD Attending Provider:Jd Waite MD Primary Care Physician:Alberto Bailey MD Other Provider: Reason for Visit Rt Hip Fx RT HIP FX Ht/WT & BMI Height (Feet): 5 Height (Inches): 3.00 Weight (Kilograms): 105.500 Body Mass Index 41.21 Allergies Coded Allergies: No Known Allergies (Unverified Allergy, Unknown, 12/09/16) Past Anesthesia History Anesthesia History: Denies:: Abnormal Airway, Anesthesia Reactions (no prior surgery), Difficult Intubation, Fam Anesthesia Reaction Diabetes History Hx Diabetes?: Yes (R hip pinning) MRSA MRSA: No Medications Home Meds Incl Beta Albina: No Reported Medications oxyCODONE-Acetaminophen 10-325 mg 1 Each Tablet1 Tab PO Q6 HOURS PRN For Pain # 60 12/09/16 Diazepam 5 Mg Tablet5 Mg PO BID PRN For Anxiety Ref 0 11/05/16 Duloxetine 60 Mg Capsule.dr60 Mg PO DAILY Ref 0 11/05/16 Discontinued Reported Medications oxyCODONE-Acetaminophen 7.5-325 mg 1 Each Tablet1 Tab PO TID PRN For Pain Ref 0 11/05/16 History History of ENT Problems?: No HEENT History: Denies:: Abnormal Airway Cataracts Difficult Intubation Dysphagia Hearing Problem Sinus Problem TMJ Hx of Heart Problems?: No Cardiovascular History: Denies:: AICD Abdominal Aortic Aneurism Atrial Fibrillation Edema Heart Murmur Irregular Heartbeat Pacemaker Hx of Respiratory Problem?: No Respiratory History: Denies:: Asthma COPD Chest Surgery Dyspnea Emphysema Hemoptysis Oxygen Administration Pneumonia Tuberculosis Use of C-PAP Machine Hx Neurologic Problems?: No Neurological History: Positive for:: Headaches (several times weekly) Denies:: Alzheimer's Disease CVA Dementia Dizziness Multiple Sclerosis Parkinson's Disease Seizures Hx of GI Problems?: No Gastrointestinal History: Denies:: Cirrhosis Gastrointestinal Bleeding Heartburn Hepatitis Hiatal Hernia Rectal Bleeding Hx of Problems?: No Genitourinary History: Denies:: Kidney Stones Urinary Tract Infection Female Hx: Denies:: Currently Problems with Breasts? Skin History: Denies:: History Skin Disorders? Pressure Ulcers Hx Musculoskeletal Problems?: Yes Musculoskeletal History: Positive for:: Back Injury Degenerative Joint Musculoskeletal Trauma (right hip 4 week ago) Hx of Psycho/Social Problems?: Yes Psycho Social History: Positive for:: Anxiety Hx Depression Hx Surgeries?: No Hx Any Other Health Problems?: No Other History: Denies:: Cancer Thyroid Disease History Blood Transfusions: Denies:: Blood Transfusions Hx Diabetes: Yes (R hip pinning) Hx Alcohol Use: Yes (occasionally)Hx Substance Use: No Smoking Status: Current Every Day Smoker (1/2 ppd) Have You Smoked inLast 12 mo: Yes (3 cigarettes daily) Stop/Bang Treated for Sleep Apnea?: No Do You Have a CPAP Machine?: No S-Snoring: Do You Snore Loudly: No T-Tired: feel tired, fatigued: No O-Obsered: Observed not breath: No P-Blood Pressure: treated: No B- Body Mass Index > 35 kg/m2: Yes A- Age over 50: No N- Neck Large Circumference: No G- Gender Male: No VIMAL Total Score: 2 Risk Assessment Category Category 1A: Patient has history of documented sleep apnea, and HAS NOT received any narcotic, sedative or anesthesia administration during this stay. Category 1B: Patient has history of documented sleep apnea, and HAS received any narcotic , sedative or anesthesia administration during this stay Category 2: Patient has SUSPECTED Obstructive Sleep Apnea, and HAS received any narcotic , sedative or anesthesia administration during this stay. Category 3: Patient has SUSPECTED Obstructive Sleep Apnea and HAS NOT received narcotic, sedative or anesthesia administration during this stay. Category 4: Outpatient in Procedural Areas with known sleep apnea or who screen positive for High Risk via the STOP/BANG questionnaire. Exam Exam Vital Signs Vital Signs Date Time Temp Pulse Resp B/P Pulse Ox O2 Delivery O2 Flow Rate FiO2 12/10/16 14:56 14 98 12/10/16 14:50 14 97 12/10/16 13:25 36.8 80 16 146/88 98 Room Air 12/10/16 11:43 16 98 12/10/16 09:58 83 General Appearance: Alert, Oriented X3, Cooperative, No Acute Distress HEENT/AIRWAY: MP 3 Lungs: Clear to Auscultation Heart: Exam Unremarkable Meds/Labs/Diagnostics Admission Meds Current Medications Ondansetron HCl 4 mg 4 mg ONCE ONCE IVPUSH Last administered on 12/09/16t 18: 40; Start 12/09/16 at 18:25; Stop 12/09/16 at 18:26; Status DC Sodium Chloride (Normal Saline) 1,000 ml @ 100 mls/hr Q10H IV Last administered on 12/10/16 07:49; Start 12/09/16 at 20:18 Famotidine (Pepcid) 20 mg BID PO Last administered on 12/09/16 22:18; Start at 20:30 Labs Test 12/09/16 17:53 12/09/16 20:47 12/10/16 06:33 Hold Purple Top Tube Received (Received) Hold Blue Top Tube Received (Received) Human Chorionic Gonadotropin, Qual Negative (Negative) Hold Red Top Tube Received (Received) Hold [place] Top Tube Received (Received) Urine Color Straw (YELLOW) Urine Appearance Hazy (CLEAR,HAZY) Urine pH 6.0 (5.0-8.0) Urine Specific [place] 1.005 (1.003-1.035) Urine Protein Negativemg/dL (NEG,TRACE) Urine Glucose (UA) Negativemg/dL (NEGATIVE) Urine Ketones Negativemg/dL (NEGATIVE) Urine Occult Blood Negative (NEGATIVE) Urine Nitrite Negative (NEGATIVE) Urine Bilirubin Negative (NEGATIVE) Urine Urobilinogen Normalmg/dL (NORMAL) Urine Leukocyte Esterase Small (NEGATIVE) Urine RBC 0-2/hpf (0-2) Urine WBC 6-10/hpf (0-5) Urine Epithelial Cells Occasional/hpf (NONE-MOD) Urine Crystals None seen (NONE SEEN) Urine Bacteria Many/hpf (NONE-FEW) Urine Hyaline Casts None/lpf (NONE) Urine Granular Casts None seen (NONE SEEN) Urine Waxy Casts None seen (NONE SEEN) Urine Red Blood Cell Casts None seen (NONE SEEN) Urine White Blood Cell Casts None seen (NONE SEEN) Urine Mucus None seen (None Seen) Urine Trichomonas None seen (NONE SEEN) Urine Yeast None (NONE SEEN) Urinalysis Comment None Urine Culture Reflexed Indicated Hold Urine Received (Received) White Blood Count 10.1th/mm3 (3.8-10.1) Red Blood Count 4.15mil/mm3 (3.90-5.20) Hemoglobin 12.2g/dL (12.0-15.6) Hematocrit 36.3% (35.0-46.0) Mean Corpuscular Volume 87.5fL (81-100) Mean Corpuscular Hemoglobin 29.4pg (27.0-35.0) Mean Corpuscular Hemoglobin Concent 33.6% (32.0-37.0) Red Cell Distribution Width 13.7% (12.3-15.4) Platelet Count 260bil/L (150-400) Neutrophils (%) (Auto) 62.6% (40-74) Lymphocytes (%) (Auto) 24.6% (14-46) Monocytes (%) (Auto) 8.4% (4-12) Eosinophils (%) (Auto) 3.8% (0-5) Basophils (%) (Auto) 0.3% (0-3) Sodium Level 139mEq/L (134-144) Potassium Level 4.1mEq/L (3.5-5.2) Chloride Level 102mEq/L (97-108) Carbon Dioxide Level 22mmol/L (18-29) Blood Urea Nitrogen 7mg/dL (6-20) Creatinine 0.47mg/dL (0.57-1.00) Estimat Glomerular Filtration Rate 221mL/min (>59) Glucose Level 104mg/dL (60-99) Calcium Level 9.0mg/dL (8.5-10.1) Total Bilirubin 0.3mg/dL (0.0-1.2) Aspartate Amino Transf (AST/SGOT) 10U/L (0-50) Alanine Aminotransferase (ALT/SGPT) 8U/L (0-32) Alkaline Phosphatase 80U/L (25-150) Total Protein 6.5g/dL (6.4-8.4) Albumin 3.8g/dL (3.4-5.0) Plan Impression Patient chart reviewed, patient interviewed and anesthestic plan with risks, benefits, and alternatives discussed, and informed consent obtained. NPO Status: 12/09/16 ASA Physical Status: ASA3 Severe Disease (chronic pain) Anesthetic Plan: GA Bene/Risks/Altern/Consents: Yes HP Complete Prior to Induction: Yes Dain Schwartz MD Dec 10, 2016 17:20
--- NOTE | 2016-12-10 18:43 | PCM.ORTHOP ---
Orthopedic Operative Report Date of Service: Dec 09, 2016 Pre Operative Diagnosis Right hip fracture Post Operative Diagnosis Right hip fracture Procedure Right hip open reduction internal fixation Surgeon Surgeon: Alberto Azul Assistants: Jorge A Galiica Indication for Procedure Right hip fracture Findings Right comminuted subtrochanteric fracture Details of Procedure Estimated Blood Loss: 25 mL Implant: Biomet Affixus Nail 9 mm x 360mm- 130deg, 95 lag, 48 screw Indications: This is Juliette Ortiz who is status-post a right intertrochanteric hip fracture with subtrochanteric extension. The risks versus benefits of open reduction and internal fixation were discussed with the patient in detail. The patient voiced understanding of the risks and agreed to proceed. The risks discussed were pain, bleeding, infection, damage to neurovascular structures, failure of procedure, need for further procedures, loss of limb function, loss of limb, heart attack, stroke, and deathVerbal and written consent were obtained. Description of Operation: The patient was brought to the operating room. Patient name and surgical site were confirmed. Preoperative antibiotics were given. General anesthesia was administered. The patient was placed supine on the fracture table in the standard fashion. All bony prominences were well padded. Traction was applied to the operative leg and the fracture was attempted to be closed reduced. The leg and hip were then prepped and draped in the usual sterile fashion. The previous incision from the core decompression was used and extended approximately 8 cm and the fracture was open reduced and held with a clamp under C-arm guidance. A small longitudinal incision was made proximal to the greater trochanter. Subcutaneous dissection was bluntly performed down to the tip of the greater trochanter. A 3.2 mm guide pin was then placed through the tip of the greater trochanter and into the femoral canal under fluoroscopic guidance. This was checked in both AP and lateral views. This pin was then over-reamed with a 17 mm reamer. The ball tipped guide wire was placed into the medullary canal and advanced into the center of the distal metaphysis. The guide wire was then over-reamed in 0.5 mm increments until bony chatter was achieved at the isthmus. A tire gauge was used to determine the length of the nail. The nail implant was loaded onto the insertion jig and then gently malleted into position over the guide wire. The fracture was well reduced as confirmed with C-arm in AP and lateral views. The guide was removed. The guide pin for the hip screw was inserted to a point within 25 mm tip-to-apex distance on AP and lateral views. The size was measured. A m hip screw size was selected along with a compression screw. The lateral cortex was drilled for the compression screw. The guide pin was then overdrilled and the hip screw was inserted with static compression at the fracture once the compression screw inserted and engaged. The traction was removed and orthogonal views with fluoroscopy determined reduction of our fracture with appropriate placement of hip screw centered with a tip-to-apex distance less than 25 mm. The distal interlocking screw was then inserted in the standard fashion using the perfect salamatof technique under C-arm guidance. All wounds were thoroughly irrigated by bulb irrigation. Hemostasis was obtained with electrocautery. The fascia was closed with 0 Vicryl suture. The subcutaneous space was closed with interrupted 2-0 Vicryl suture. The skin was closed with interrupted rosalinda. Hard copy radiographs confirmed adequate reduction and placement of hardware. The patient was extubated without difficulty and transferred to the PACU in stable condition. I was present and scrubbed for the entire procedure. Description of Findings: comminuted intertrochanteric fracture with subtrochanteric extension Specimens Obtained: none You may partial weightbear at 25%. PT/OT will be ordered. Return to clinic in 2 weeks with a PA with 2 view x-rays and staple/suture removal with Steri-Strips application. You may get your wound wet at that time. You may advance weightbearing to 50% if you are able to tolerate and follow-up with me in 4 weeks thereafter with additional x-rays 2 views. We will progress weightbearing to full once radiographic healing noted at 6-10 weeks. Please keep the affected extremity elevated when possible. You may use ice and/or heat as needed for comfort. All questions and concerns were addressed. Please feel free to call with any further questions, comments, and/or concerns. Grafts, Implants: Implants-See Implant Record Complications There were no periprocedural complications identified. Condition Stable Anesthetic Administered: GA Catheters: None Output, Estimated Blood Loss: 50 Blood Admin during surgery: No Surgical Cast or Splint: Other Surgical Specimen Removed: No Specimen sent to Pathology: No copies to: Alberto Azul MD, Christopher L MD Dec 10, 2016 18:43
[2016-12-10] MEDS ORDERED: diphenhydrAMINE 25 mg Capsule PO PRN (19:10)
[2016-12-10] MEDS ORDERED: Acetaminophen IV 1,000 MG in IV Premix 1 EACH IV ONE (19:20)
--- NOTE | 2016-12-10 19:20 | PCM.ANEP1 ---
Post Anesthesia Phase 1 PACU Phase 1 Assessment Date of Service: Dec 09, 2016 Vital Signs Vital Signs Date Time Temp Pulse Resp B/P Pulse Ox O2 Delivery O2 Flow Rate FiO2 12/10/16 19:15 37.5 116 17 148/83 100 Simple Mask 9 12/10/16 14:56 14 98 12/10/16 14:50 14 97 12/10/16 13:25 36.8 80 16 146/88 98 Room Air 12/10/16 11:43 16 98 Anesthetic Administered: GA Level of Alertness: Awake, talking PETERSON's with Equal Strength: Yes Pain: No Pain Scale Score: 10 Nausea or Vomiting: No Oxygen Delivery: Simple Mask Lungs: Clear to Auscultation Dermatome Level: Full Sensation Dain Schwartz MD Dec 10, 2016 19:20
[2016-12-10] MEDS: HYDROmorphone 0.5 mg/0.5 mL iSecure Syringe IVPUSH PRN (20:15)
[2016-12-10] MEDS: HYDROcodone-APAP 5-325 mg Tablet PO PRN (20:52)
--- NOTE | 2016-12-10 21:36 | NUR ---
Transfer Patient returned to floor at 2029. Tolerating full liquid diet with no noted nausea. c/o of 8/10 pain given medication and Ice at this time. Surgical site CDI, IV patent and asymptomatic at this time.
--- NOTE | 2016-12-10 22:27 | PCM.PNMED ---
Subjective Date of Service Dec 10, 2016 Subjective Patient complains of pain in the right hip and is anxiously awaiting surgery. She has no other new complaints. Exam Vital Signs Vital Sign - Last Date Time Temp Pulse Resp B/P Pulse Ox O2 Delivery O2 Flow Rate FiO2 12/10/16 20:32 36.4 108 16 133/87 93 Room Air 12/10/16 20:15 2 Intake and Output 12/09/16 12/09/16 12/10/16 Cumulative From/Thru 15:00 23:00 07:00 12/09/16 17:50 - 12/10/16 06:40 Intake Total 874 ml 874 ml Output Total 1450 ml 1450 ml Balance -576 ml -576 ml Intake Oral 0 ml 0 ml IV Total 874 ml 874 ml Output Urine Total 1450 ml 1450 ml Exam General: Patient is in no apparent distress laying supine in quiet in bed. HEENT: Head is atraumatic and normocephalic. Eyes: Pupils are equally round and reactive to light and accommodation. Extraocular muscles are intact. Sclera are white, anicteric. Subconjunctival mucosa is pink. Ears and nose are unremarkable. Oropharynx: There is no mucosal lesions, there is no thrush, there is no pharyngitis. Neck: Is supple, there are no nodes, or masses or tenderness. Chest: Is clear to auscultation and percussion. There are no rales, rhonchi, wheezes or rubs. Heart: Rate, rhythm is regular. There is no murmur, rub or gallop. Abdomen: Good bowel sounds are present. Abdomen is obese, soft, nontender, no organomegaly or masses were appreciated. Extremities: Are symmetrical and well perfused. There is no edema, there is no cellulitis, no rash. Neurologic: There are no focal neurological deficits. Cranial nerves II through XII are intact. There are no sensory or motor deficits. Psychiatric: Patients mood is calm and shows no sign of agitation. Genital: Deferred Rectal: Deferred Lab and Diagnostics Result Diagram: 12/10/1663212/10/16632 Microbiology Urine cultures pending X-Rays, CTs and MRIs PROCEDURE: X-RAY PELVIS W/LAT HIP (RT) IMPRESSION: 1. Displaced and angulated subtrochanteric fracture of the proximal right femur. Dictated by: Venkatesh Perez M.D. on 12/09/2016 at 19:08 Approved by: Venkatesh Perez M.D. on 12/09/2016 at 19:09 Assessment & Plan The patient is a 30 year old morbidly obese female with a history of right avascular necrosis presents to the ED via EMS complaining of pain in her right hip onset prior to arrival and was found to have a right femur fracture. 1. Displaced and angulated subtrochanteric fracture of the right femur, acute, present on admission, active. - XR confirmed the fracture as above. In the setting of avascular necrosis and recent core decompression surgery. - Dr. Azul saw the patient and is taking the patient to surgery today. - We will continue with IVF with NS at 100mls/hr. - Reglan PRN nausea - Pain management with Dilaudid HOG RINGER and 0.5mg IV push Q1H PRN. - Continue Oximetry while on the Dilaudid HOG RINGER 2. Anxiety and depression, chronic, presume stable. - Continue home Duloxetine and Diazepam PRN. 3. Morbid obesity, chronic. - BMI of 41.2. Advised outpatient follow up. 4. Current every day smoker, chronic. - Advised about smoking and risk of wound healing delay, infection rates, and the overall rate of complications. - Offer Nicotine patch but patient declined. Code status: FULL code. Disposition: Patient will receive postoperative care per orthopedics. Pain control per orthopedics. DVT prophylaxis per orthopedics. Patient will be evaluated by physical therapy and disposition is to be determined. GI Prophylaxis: H2 eran VTE Mechanical Devices: Intermittant Pneumatic CD Resuscitation Status: CPR: Attempt Resuscitation Alberto Reyes MD Dec 10, 2016 22:27
[2016-12-10] MEDS: CeFAZolin Inj 2 GM in Dextrose 5% 50 ML IV SCH (23:20)
[2016-12-11] VITALS (7 sets, daily range): BP systolic 132–155; BP diastolic 64–92; PULSE 82–122; RESP 15–18; O2SAT 96–99
[2016-12-11] MEDS: Sodium Chloride LOK Flush 10 mL Syringe IV SCH ×3 (00:30→17:26)
[2016-12-11] MEDS: 0.9% Sodium Chloride 1,000 ML IV SCH ×3 (01:55→22:18)
[2016-12-11] MEDS: HYDROcodone-APAP 5-325 mg Tablet PO PRN ×3 (03:44→13:57)
[2016-12-11 07:03] LABS: BASOPHILS % (AUTO) 0.1 % (0-3); EOSINOPHILS % (AUTO) 0 % (0-5); MONOCYTES % (AUTO) 9.4 % (4-12); Mean Corpuscular Hemoglobin 29.2 pg (27.0-35.0); Mean Corpuscular Volume 87.4 fL (81-100); NEUTROPHILS % (AUTO) 80.1 % (40-74); Platelet Count 262 bil/L (150-400)
[2016-12-11] MEDS: CeFAZolin Inj 2 GM in Dextrose 5% 50 ML IV SCH (08:32)
[2016-12-11] MEDS: DULoxetine 30 mg DR Capsule PO SCH (08:33)
--- NOTE | 2016-12-11 08:49 | PCM.PNORTH ---
Subjective Date of Service: Dec 11, 2016 Visit Information: Reason for Visit Rt Hip Fx Surgery/Surgery Date Post-Op Day # Date of Admission: Dec 09, 2016 at 20:18 Hospital Day # Subjective Found patient awake and alert sitting up in bed. No complaints of pain at this time. Patient is in good spirits and requests to go home today to her mother's house were there are no stairs. Patient also requests the use of crutches instead of a front wheeled walker. I have discussed with patient that discharge would impinge on mobility and safety and I have asked patient to consider the use of a front-wheeled walker as a safer mobility aid and to discuss this with formal physical therapy when she is seen today. Postop General: No Complaints, No Shortness of Breath, No Chest Pain, Good Appetite Pain Management: PO Objective Exam Objective Alert and oriented 3 with no distress. Interoperative dressing is clean dry and intact. Calf and thigh are soft and nontender. Toe wiggle and sensation are intact at right lower extremity distally. Chaney catheter is in place and working. No physical therapy yet as of this time. Vital Signs and I/O Vital Sign - Last Date Time Temp Pulse Resp B/P Pulse Ox O2 Delivery O2 Flow Rate FiO2 12/11/16 08:40 36.8 121 18 137/88 98 Room Air 12/10/16 20:15 2 Intake and Output 12/10/16 12/10/16 12/11/16 Cumulative From/Thru 15:00 23:00 07:00 12/09/16 17:50 - 12/11/16 05:41 Intake Total 2627 ml 1141 ml 4642 ml Output Total 550 ml 1600 ml 3600 ml Balance 2077 ml -459 ml 1042 ml Intake Oral 700 ml 700 ml IV Total 2627 ml 441 ml 3942 ml Output Urine Total 500 ml 1600 ml 3550 ml Estimated Blood Loss 50 ml 50 ml # Bowel Movements 0 0 Lab & Micro Results Laboratory Tests Test 12/11/16 06:00 White Blood Count 11.0th/mm3 (3.8-10.1) Red Blood Count 3.66mil/mm3 (3.90-5.20) Hemoglobin 10.7g/dL (12.0-15.6) Hematocrit 32.0% (35.0-46.0) Mean Corpuscular Volume 87.4fL (81-100) Mean Corpuscular Hemoglobin 29.2pg (27.0-35.0) Mean Corpuscular Hemoglobin Concent 33.4% (32.0-37.0) Red Cell Distribution Width 13.5% (12.3-15.4) Platelet Count 262bil/L (150-400) Neutrophils (%) (Auto) 80.1% (40-74) Lymphocytes (%) (Auto) 10.2% (14-46) Monocytes (%) (Auto) 9.4% (4-12) Eosinophils (%) (Auto) 0% (0-5) Basophils (%) (Auto) 0.1% (0-3) Microbiology 12/09/16 Urine Culture - Preliminary, Resulted Result Diagram: 12/11/16 0600 12/10/16 0633 General Appearance: Alert, Oriented X3, Cooperative, No Acute Distress Extremities: No Compartment Syndrom Noted, Thigh & Calf Soft/Nontender Postop Sensory Motor: Distal Motor Intact, Movement in Toes, Distal Sensation Intact Activity: Activity per PT, Ambulate with PT (touchdown weightbearing only at the right lower extremity using frontwheel walker or bilateral axillary crutches as determined by physical therapy.) Catheters: Urethral [address] Way Chaney (Chaney should be removed today after first PT session.) Assessment & Plan Impression Patient is a 30-year-old female who has undergone a right hip long femoral IM nail placement on 12/10/2016. She is in good spirits this morning and anxious to discharged home. I advised patient that she will work with therapy prior to discharge to ensure safe mobility. Problems: Plan Postop day #1 from right intertrochanteric hip fracture with placement of long IM nail to right femur on 12/10/[address] Alberto Azul. Touchdown weightbearing only at the right lower extremity using front wheeled walker or bilateral axillary crutches. Continue formal physical therapy for mobility, gait and safety. Continue by mouth pain medication in the form of [place] and/or Percocet as needed. Keep dressing clean dry and intact and change at 3-4 days in hospital or have her come to the office at that time for dressing change if she is discharged sooner.. Keep wound clean and dry. Wound may be showered at 2 weeks postop after seen in our office and cleared for showering. Ice to the surgical wound areas as needed. Foot pumps should be encouraged to reduce venous stasis. Nursing please discontinue any IV pain medications and maintain patient on by mouth pain medication as needed. Nursing please discontinue Chaney catheter this morning after first PT session. Follow-up 12/15/2016 or 12/16/2016 at at [facility] for dressing change. Follow-up in 2 weeks at [facility] orthopedic clinic with mid-level provider for wound check, removal of rosalinda and placement of Steri-Strips with right 2 view femur x-rays on arrival. Follow-up in 6 weeks [facility] orthopedic clinic with Dr. Alberto Azul with right two-view femur x-rays on arrival. Patient's pain level increased as the day is worn on and she is less comfortable and mobile. Dr. Reyes from hospitalist service is following patient and has recommended she remain in house for additional physical therapy and pain control. Orthopedics thanks hospitalist service for their help in the medical management of this patient. Anticipate discharge to home on postoperative day 2 or 3 when pain is controlled and mobility is is cleared by physical therapy.. VTE Prophylaxis: SCDs, Other (Xarelto 10 mg daily for DVT prophylaxis 35 days postop.) Resuscitation Status: CPR: Attempt Resuscitation Jorge A Galicia PA-C Dec 11, 2016 08:49
--- NOTE | 2016-12-11 10:00 | NUR ---
IV LEAKING Patient's IV leaking/bleeding. IV antibiotics stopped. Removed IV from right AC and placed gauze dressing. Notified MD, need to start another IV for continuation of IV antibiotics. Attempted to place IV line without success. IV therapy notified.
--- NOTE | 2016-12-11 11:12 | PCM.ANEP2 ---
Post Anesthesia Evaluation ASA/CMS Post Anesthesia VS in Patient's Normal Range?: Yes Resp Stable; Airway Patent?: Yes CV Function & Hydration Stable: Yes Mental Status Recovered?: Yes Pain control Satisfactory?: Yes N/V Control Satisfactory?: Yes Dain Schwartz MD Dec 11, 2016 11:12
--- NOTE | 2016-12-11 12:01 | NUR ---
Evaluation completed. Please go to "Notes" then click on "Assessments and Notes" (bottom left corner of screen). Then select appropriate discipline tab on top of screen.
[2016-12-11] MEDS: hydrOXYzine Pamoate 25 mg Capsule PO PRN ×3 (12:26→22:54)
--- NOTE | 2016-12-11 14:40 | NUR ---
MEREDITH/PAIN Meredith catheter removed after inital PT evaluation. Patient was able to void within 4 hrs. Ambulated with FWW during both therapy sessions. C/o pain in L hip and upper thigh. Medicated with 2 tabs norco, after 30 mins pain was decreased but about 2 hrs after administration pain started to increase again. Medicated with 10mg oxycodone. After an hour, patient report muscle tightness and pain mostly in inner right thigh. Also administered vistaril to assist with muscle spasms. Pain level has not gotten down past 6/10, but has been able to ambulate and move around with therapy. Care continues.
--- NOTE | 2016-12-11 15:02 | NUR ---
Evaluation completed. Please go to "Notes" then click on "Assessments and Notes" (bottom left corner of screen). Then select appropriate discipline tab on top of screen.
--- NOTE | 2016-12-11 16:21 | NUR ---
Social Work- Continued Discharge Plan Data: EMR Reviewed. Pt is on day 2 of hospitalization for RT hip fx per H&P. PT recommending pt discharge with fww. JAGDEEP spoke with pt and pt's at bedside regarding walker. JAGDEEP faxed [facility] with script and facesheet. SW to update pt tomorrow about insurance coverage of walker. Pt to discharge home with to transport via POV. No other anticipated discharge needs. SW will continue to follow. Assessment:Pt who is independent at baseline. Plan: SW to follow up regarding fww for discharge. Pt to likely discharge home when medically stable. SW will continue to follow. Valeria Felix MSW
[2016-12-11] MEDS ORDERED: cefTRIAXone Inj 2,000 MG in Dextrose 5% Minibag Plus 50 ML IV SCH (16:30)
[2016-12-11] MEDS: HYDROmorphone 0.5 mg/0.5 mL iSecure Syringe IVPUSH PRN (21:58)
--- NOTE | 2016-12-11 22:08 | PCM.PNMED ---
Subjective Date of Service Dec 11, 2016 Subjective Patient was feeling better this morning with afternoon she is having a significant amount of pain and discomfort. She has no other new complaints. Exam Vital Signs Vital Sign - Last Date Time Temp Pulse Resp B/P Pulse Ox O2 Delivery O2 Flow Rate FiO2 12/11/16 19:45 36.9 94 18 151/88 96 Room Air 12/10/16 20:15 2 Intake and Output 12/10/16 12/10/16 12/11/16 Cumulative From/Thru 15:00 23:00 07:00 12/09/16 17:50 - 12/11/16 05:41 Intake Total 2627 ml 1141 ml 4642 ml Output Total 550 ml 1600 ml 3600 ml Balance 2077 ml -459 ml 1042 ml Intake Oral 700 ml 700 ml IV Total 2627 ml 441 ml 3942 ml Output Urine Total 500 ml 1600 ml 3550 ml Estimated Blood Loss 50 ml 50 ml # Bowel Movements 0 0 Exam General: Patient is in no apparent distress. HEENT: Head is atraumatic and normocephalic. Eyes: Pupils are equally round and reactive to light and accommodation. Extraocular muscles are intact. Sclera are white, anicteric. Subconjunctival mucosa is pink. Ears and nose are unremarkable. Oropharynx: There is no mucosal lesions, there is no thrush, there is no pharyngitis. Neck: Is supple, there are no nodes, or masses or tenderness. Chest: Is clear to auscultation and percussion. There are no rales, rhonchi, wheezes or rubs. Heart: Rate, rhythm is regular. There is no murmur, rub or gallop. Abdomen: Good bowel sounds are present. Abdomen is obese, soft, nontender, no organomegaly or masses were appreciated. Extremities: Are symmetrical and well perfused. There is no edema, there is no cellulitis, no rash. The right hip dressing is clean dry and intact with no evidence of strike through bleeding. Neurologic: There are no focal neurological deficits. Cranial nerves II through XII are intact. There are no sensory or motor deficits. Psychiatric: Patients mood is calm and shows no sign of agitation. Genital: Deferred Rectal: Deferred Lab and Diagnostics Result Diagram: 12/11/16 0600 12/10/16 0633 Microbiology Urine cultures pending X-Rays, CTs and MRIs PROCEDURE: X-RAY PELVIS W/LAT HIP (RT) IMPRESSION: 1. Displaced and angulated subtrochanteric fracture of the proximal right femur. Dictated by: Venkatesh Perez M.D. on 12/09/2016 at 19:08 Approved by: Venkatesh Perez M.D. on 12/09/2016 at 19:09 Assessment & Plan The patient is a 30 year old morbidly obese female with a history of right avascular necrosis presents to the ED via EMS complaining of pain in her right hip onset prior to arrival and was found to have a right femur fracture. # Displaced and angulated subtrochanteric fracture of the right femur, acute, present on admission, active. - XR confirmed the fracture as above. In the setting of avascular necrosis and recent core decompression surgery. - Dr. Azul took the patient to surgery today and performed an open reduction and internal fixation of the right hip - We will continue with IVF with NS at 100mls/hr. - Reglan PRN nausea - Pain management as per orthopedic surgery. - Continue Oximetry while on the Dilaudid HYDROGEOLOGIST # Urinary tract infection resident at the time of admission - Greater than 100,000 colony-forming units of gram-negative rods suspected to be Escherichia coli - Rocephin started after perioperative Ancef was completed - Urine cultures # Tachycardia - Likely secondary to the above - Continue to monitor closely - Continue IV hydration - Check hemoglobin and hematocrit in a.m. to rule out secondary to volume depletion secondary to acute blood loss. #. Anxiety and depression, chronic, presume stable. - Continue home Duloxetine and Diazepam PRN. # Morbid obesity, chronic. - BMI of 41.2. Advised outpatient follow up. # Current every day smoker, chronic. - Advised about smoking and risk of wound healing delay, infection rates, and the overall rate of complications. - Offer Nicotine patch but patient declined. Code status: FULL code. Disposition: I have discussed case with Dr. Azul. Patient will receive postoperative care per orthopedics. Pain control per orthopedics. DVT prophylaxis per orthopedics. Patient will be evaluated by physical therapy and disposition is to be determined. Pain Evaluation: Adequate Pain Control GI Prophylaxis: H2 eran VTE Prophylaxis: SCDs, Other (Xarelto 10 mg daily for DVT prophylaxis 35 days postop.) VTE Mechanical Devices: Intermittant Pneumatic CD Resuscitation Status: CPR: Attempt Resuscitation [place],Christopher E MD Dec 11, 2016 22:08
[2016-12-11] MEDS ORDERED: HYDROmorphone 0.5 mg/0.5 mL iSecure Syringe IVPUSH PRN (22:10)
[2016-12-12] MEDS: Sodium Chloride LOK Flush 10 mL Syringe IV SCH ×2 (00:41→09:11)
[2016-12-12 03:36] VITALS: BP 117/76; PULSE 109; RESP 16; O2SAT 97
--- NOTE | 2016-12-12 03:57 | NUR ---
Pain Pt reported that her pain has not been well managed, ambulating to BR increases it to unbearable level. Pt reminded to adhere to weight restrictions to right side, 25% or less (still on low weight bearing related to Feb surgery.) Md aware and made changes to pain management per pt request, this seems to be working adequately while pt has been mostly in bed through night. Will continue to monitor and reassess in am when pt is more active. Hourly rounding on going.
[2016-12-12 06:05] LABS: BASOPHILS % (AUTO) 0.3 % (0-3); EOSINOPHILS % (AUTO) 1.4 % (0-5); MONOCYTES % (AUTO) 9.6 % (4-12); Mean Corpuscular Hemoglobin 29.2 pg (27.0-35.0); Mean Corpuscular Volume 89.1 fL (81-100); NEUTROPHILS % (AUTO) 58.1 % (40-74); Platelet Count 231 bil/L (150-400)
[2016-12-12 06:21] LABS: Magnesium 1.8 mg/dL (1.6-2.6)
--- NOTE | 2016-12-12 07:51 | PCM.PNORTH ---
Subjective Date of Service: Dec 12, 2016 Visit Information: Reason for Visit Rt Hip Fx Surgery/Surgery Date Post-Op Day # Date of Admission: Dec 09, 2016 at 20:18 Hospital Day # Subjective Found patient sleeping and well-positioned and easily awakened. Discussed possible discharge today by hospitalist service if she is cleared by formal physical therapy and ready for by mouth antibiotics regarding her UTI. I will encourage patient to participate in formal therapy for increased mobility and gait safety training using frontwheel walker. Patient is agreeable to front wheeled walker which she used yesterday. Patient again reiterates today that she will be discharging to her mother's home where she does not have to use stairs to enter and can get regular care and assistance during recovery. Postop General: No Complaints, No Shortness of Breath, No Chest Pain, Good Appetite Pain Management: PO Objective Exam Objective Alert and oriented 3 and pleasant. Interoperative dressing is clean, dry and loosened. Interoperative dressings are removed and island-type postoperative dressings trimmed for ventilation are reapplied with Xeroform. Little postoperative bleeding is noted on the intraoperative dressings. Calf and thigh are soft and nontender. Toe wiggle and sensation are intact to right lower extremity distally. Chaney is absent. Gait 25-50 feet with formal therapy on 12/11/2016. Vital Signs and I/O Vital Sign - Last Date Time Temp Pulse Resp B/P Pulse Ox O2 Delivery O2 Flow Rate FiO2 12/12/16 03:36 36.8 109 16 117/76 97 Room Air 12/10/16 20:15 2 Intake and Output 12/11/16 12/11/16 12/12/16 Cumulative From/Thru 15:00 23:00 07:00 12/09/16 17:50 - 12/12/16 06:26 Intake Total 856 ml 600 ml 6098 ml Output Total 1230 ml 500 ml 5330 ml Balance -374 ml 100 ml 768 ml Intake Oral 800 ml 600 ml 2100 ml IV Total 56 ml 3998 ml Output Urine Total 1230 ml 500 ml 5280 ml Estimated Blood Loss 50 ml # Bowel Movements 0 0 Lab & Micro Results Laboratory Tests Test 12/12/16 05:27 White Blood Count 11.4th/mm3 (3.8-10.1) Red Blood Count 3.22mil/mm3 (3.90-5.20) Hemoglobin 9.4g/dL (12.0-15.6) Hematocrit 28.7% (35.0-46.0) Mean Corpuscular Volume 89.1fL (81-100) Mean Corpuscular Hemoglobin 29.2pg (27.0-35.0) Mean Corpuscular Hemoglobin Concent 32.8% (32.0-37.0) Red Cell Distribution Width 13.9% (12.3-15.4) Platelet Count 231bil/L (150-400) Neutrophils (%) (Auto) 58.1% (40-74) Lymphocytes (%) (Auto) 30.3% (14-46) Monocytes (%) (Auto) 9.6% (4-12) Eosinophils (%) (Auto) 1.4% (0-5) Basophils (%) (Auto) 0.3% (0-3) Sodium Level 136mEq/L (134-144) Potassium Level 4.2mEq/L (3.5-5.2) Chloride Level 100mEq/L (97-108) Carbon Dioxide Level 25mmol/L (18-29) Blood Urea Nitrogen 9mg/dL (6-20) Creatinine 0.52mg/dL (0.57-1.00) Estimat Glomerular Filtration Rate 197mL/min (>59) Glucose Level 116mg/dL (60-99) Calcium Level 8.4mg/dL (8.5-10.1) Magnesium Level 1.8mg/dL (1.6-2.6) Total Bilirubin 0.2mg/dL (0.0-1.2) Aspartate Amino Transf (AST/SGOT) 24U/L (0-50) Alanine Aminotransferase (ALT/SGPT) 8U/L (0-32) Alkaline Phosphatase 61U/L (25-150) Total Protein 5.9g/dL (6.4-8.4) Albumin 3.5g/dL (3.4-5.0) Microbiology 12/09/16 Urine Culture - Preliminary, Resulted Escherichia Coli Result Diagram: 12/12/1652612/12/16526 General Appearance: Alert, Oriented X3, Cooperative, No Acute Distress Extremities: No Compartment Syndrom Noted, Thigh & Calf Soft/Nontender Postop Sensory Motor: Distal Motor Intact, Movement in Toes, Distal Sensation Intact Activity: Activity per PT, Ambulate with PT (touchdown weightbearing only at the right lower extremity using frontwheel walker or bilateral axillary crutches as determined by physical therapy.) Catheters: None Assessment & Plan Impression Patient is a 30-year-old female who has suffered a right hip fracture with subsequent right femur long nail placement on 12/10/[address] Azul. Patient has an attentive and will be discharged to her mother's home so she may receive [id number] care as needed and has no steps to enter. Patient is anxious for discharge to home and in good spirits. Problems: Plan Postop day #2 from right intertrochanteric hip fracture with placement of long IM nail to right femur on 12/10/[address] Alberto Azul. Touchdown weightbearing only at the right lower extremity using front wheeled walker. Continue formal physical therapy for mobility, gait and safety. Continue by mouth pain medication in the form of Roxicodone, Tylenol and Vistaril. Patient's pain level has increased since the first morning postop. At nursing request Roxicodone 5 mg 1-3 tablets per dose will be adjusted from every 6 to every 4 for improved pain control with monitoring for somnolence. Keep wound and dressing clean and dry. Wound may be showered at 2 weeks postop after seen in our office and cleared for showering. Interoperative dressings are changed this morning and wounds are generally in good condition. There is a small 3 cm area at the primary wound which appears to have inverted skin edges. I believe this is the location where her previous incision had been made for her femoral head drilling. Ice to the surgical wound areas as needed. Foot pumps should be encouraged to reduce venous stasis. Follow-up 12/15/2016 or 12/16/2016 at at [facility] for dressing change. Follow-up in 2 weeks at [facility] orthopedic clinic with mid-level provider for wound check, removal of rosalinda and placement of Steri-Strips with right 2 view femur x-rays on arrival. Follow-up in 6 weeks [facility] orthopedic clinic with Dr. Alberto Azul with right two-view femur x-rays on arrival. Dr. Reyes from hospitalist service is following patient and has recommended she remain in house for definitive treatment of UTI and additional physical therapy and pain control. Orthopedics thanks hospitalist service for their help in the medical management of this patient. Anticipate discharge to home by hospitalist service on postoperative day 2 or 3 when UTI is appropriate for by mouth antibiotics, pain is controlled and additional gait training has taken place for safety. VTE Prophylaxis: SCDs, Other (Xarelto 10 mg daily for DVT prophylaxis 35 days postop.) Resuscitation Status: CPR: Attempt Resuscitation Jorge A Galicia PA-C Dec 12, 2016 07:51
[2016-12-12] MEDS: 0.9% Sodium Chloride 1,000 ML IV SCH (08:18)
[2016-12-12] MEDS: DULoxetine 30 mg DR Capsule PO SCH (09:10)
[2016-12-12 09:52] VITALS: BP 126/80; PULSE 108; RESP 18; O2SAT 97
[2016-12-12] MEDS: hydrOXYzine Pamoate 25 mg Capsule PO PRN ×2 (10:14→14:53)
--- NOTE | 2016-12-12 11:14 | NUR ---
PT Goals Met Pt has met all PT goals except stair navigation x2 with axillary crutches, but is going to gina Arevalo's home upon discharge where there are no stairs. Pt is discharged from further PT at this time and is to get up with nursing as tolerated.
[2016-12-12 13:15] VITALS: BP 132/85; PULSE 112; RESP 18; O2SAT 97
[2016-12-12 13:26] LABS: Mean Corpuscular Volume 89.6 fL (81-100)
--- NOTE | 2016-12-12 15:03 | PCM.DIMED ---
Discharge Instructions Date of Service Dec 12, 2016 Dates of Hospitalization Dec 09, 2016 at 20:18 Discharge Diagnosis Discharge Diagnosis Right Hip Fracture Diet No restrictions Activity Outpatient Physical Therapy (Patient is to be toe touch, non weight bearing Right lower extremity.) Call your provider Fever or Chills, Shortness of breath, Bleeding, Chest pain, Vomitting, Excessive diarrhea, Weakness (unilateral) Patient Instructions Follow-up Provider: Alberto Bailey MD Follow-up with PCP in: 1 week Provider: Alberto Azul MD Follow-up in: 2 weeks Alberto Reyes MD Dec 12, 2016 15:03
[2016-12-12] MEDS ORDERED: Acetaminophen PO (15:14)
[2016-12-12] MEDS ORDERED: RIVA10TA PO (15:14)
[2016-12-12] MEDS ORDERED: OXYC5TAB72 PO (15:14)
[2016-12-12] MEDS ORDERED: OXYC10TA8 PO (15:39)
--- NOTE | 2016-12-12 16:12 | NUR ---
DISCHARGE Pain managed with oxycodone, tylenol and vistaril. Able to ambulate with therapy. Reviewed discharge paperwork with patient, including weight bearing status and dressing care. Patient was given bed bath prior to discharge. Saline lock IV was removed from left AC, catheter intact. Stood and transferred to wheelchair with FWW and 1 person SBA. Patient left with all personal belongings. Was taken outside to personal vehicle and left with and mom.
[2016-12-12] MEDS ORDERED: CEFU500T61 PO (19:34)
--- NOTE | 2016-12-12 23:22 | PCM.DC.MED ---
Discharge Summary Date of Service Dec 12, 2016 Dates of Hospitalization Date of Hospital Admission Dec 09, 2016 at 20:18 Date of Discharge: Dec 12, 2016 Providers: Admitting Physician: Jd Waite MD Primary Care Physician: Alberto Bailey MD Attending Physician: Jd Waite MD Diagnosis at Time of Discharge Diagnosis at Time of Discharge Right Hip Fracture Procedures XRay, CTs & MRIs PROCEDURE: X-RAY PELVIS W/LAT HIP (RT) IMPRESSION: 1. Displaced and angulated subtrochanteric fracture of the proximal right femur. Dictated by: Venkatesh Perez M.D. on 12/09/2016 at 19:08 Approved by: Venkatesh Preez M.D. on 12/09/2016 at 19:09 Brief History Ms. Juliette Ortiz is a 30 year old morbidly obese female with a history of right avascular necrosis presents to the ED via EMS complaining of pain in her right hip onset prior to arrival. The patient was putting their son in their car seat when he stood up and was going to fall out of the car. The patient bent over to catch her son and suddenly heard a popping noise. She could not move her right hip after that and has been in excruciating pain. Her right hip hurts most at the groin and lateral side with radiation to the back. She denies any numbness or tingling, but reports to be very sensitive to pain on the right foot. The patient last ate this morning and did not have any lunch or dinner. She denies any other symptoms other than severe pain at this time. The patient developed the right hip pain during about 2.5 years ago. She developed trouble walking and has had pain in the groin since that time. She has had treatment for back arthritis and injections without benefit. Earlier in the year, she was found to have avascular necrosis on the MRI scan and recently underwent a hip core decompression by Dr. Foster on 11/10/2016 She is supposed to be nonweight bearing for 6 weeks postoperatively, but has not been compliant. She uses crutches to get around and takes Percocet 10mg Q6H after the surgery. She also takes Diazepam 5mg BID and Duloxetine 60mg daily for anxiety/depression. She starts smoking 1/2 pack per day. Denies any alcohol or illicit drug use. En route to the ED, she was given a dose of Ketamine 200mg and it made her groggy. The ED gave her several doses of Dilaudid and a dose of Ketamine 20mg IV , which only mildly controlled the pain. Patient was found to have a displaced and angulated subtrochanteric fracture of the proximal right femur on XR. Dr. Azul (orthopedics) was consulted and agreed with surgery in the morning. The patient was admitted to the hospital service for further evaluation treatment. Hospital Course The patient is a 30 year old morbidly obese female with a history of right avascular necrosis presents to the ED via EMS complaining of pain in her right hip onset prior to arrival and was found to have a right femur fracture. # Displaced and angulated subtrochanteric fracture of the right femur, acute, present on admission, active. - XR confirmed the fracture as above. In the setting of avascular necrosis and recent core decompression surgery. - Dr. Azul took the patient to surgery and performed an open reduction and internal fixation of the right hip. Patient is postop day #2 - We will continue with IVF with NS at 100mls/hr. - Reglan PRN nausea - Pain management as per orthopedic surgery. 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 - Rocephin started after perioperative Ancef was completed. Rocephin continued through today. - Urine cultures showed a pansensitive Escherichia coli. - On discharge we will discharge patient home on Ceftin 500 mg by mouth twice a day for 7 days. # Tachycardia postoperatively now improved. - Likely secondary to the above - Continue to monitor closely - Continue IV hydration - Check hemoglobin and hematocrit in a.m. to rule out secondary to volume depletion secondary to acute blood loss. #. Anxiety and depression, chronic, presume stable. - Continue home Duloxetine and Diazepam PRN. # Morbid obesity, chronic. - BMI of 41.2. Advised outpatient follow up. # Current every day smoker, chronic. - Advised about smoking and risk of wound healing delay, infection rates, and the overall rate of complications. - Offer Nicotine patch but patient declined. Code status: FULL code. Disposition: I have discussed case with Dr. Azul. Patient will receive postoperative care per orthopedics. Pain control per orthopedics. DVT prophylaxis per orthopedics. Patient was evaluated by physical therapy and was cleared for discharge home. Patient will be discharged home today with her family she is going home with her mother who will be taking care of her her and children will stay at their own home. Orthopedic surgery agrees with this decision. I discussed case with Dr. Pelletier today and he will handle the anticoagulation aspect of this case. Exam Vital Signs (Last) Date Time Temp Pulse Resp B/P Pulse Ox O2 Delivery O2 Flow Rate FiO2 12/12/16 13:15 36.6 112 18 132/85 97 Room Air 12/10/16 20:15 2 Exam General: Patient is in no apparent distress. HEENT: Head is atraumatic and normocephalic. Eyes: Pupils are equally round and reactive to light and accommodation. Extraocular muscles are intact. Sclera are white, anicteric. Subconjunctival mucosa is pink. Ears and nose are unremarkable. Oropharynx: There is no mucosal lesions, there is no thrush, there is no pharyngitis. Neck: Is supple, there are no nodes, or masses or tenderness. Chest: Is clear to auscultation and percussion. There are no rales, rhonchi, wheezes or rubs. Heart: Rate, rhythm is regular. There is no murmur, rub or gallop. Abdomen: Good bowel sounds are present. Abdomen is obese, soft, nontender, no organomegaly or masses were appreciated. Extremities: Are symmetrical and well perfused. There is no edema, there is no cellulitis, no rash. The right hip dressing is clean dry and intact with no evidence of strike through bleeding. Neurologic: There are no focal neurological deficits. Cranial nerves II through XII are intact. There are no sensory or motor deficits. Psychiatric: Patients mood is calm and shows no sign of agitation. Genital: Deferred Rectal: Deferred Test 12/09/16 17:53 12/09/16 20:47 12/12/16 05:27 12/12/16 13:18 Hold Purple Top Tube Received (Received) Hold Blue Top Tube Received (Received) Human Chorionic Gonadotropin, Qual Negative (Negative) Hold Red Top Tube Received (Received) Hold [place] Top Tube Received (Received) Urine Color Straw (YELLOW) Urine Appearance Hazy (CLEAR,HAZY) Urine pH 6.0 (5.0-8.0) Urine Specific [place] 1.005 (1.003-1.035) Urine Protein Negativemg/dL (NEG,TRACE) Urine Glucose (UA) Negativemg/dL (NEGATIVE) Urine Ketones Negativemg/dL (NEGATIVE) Urine Occult Blood Negative (NEGATIVE) Urine Nitrite Negative (NEGATIVE) Urine Bilirubin Negative (NEGATIVE) Urine Urobilinogen Normalmg/dL (NORMAL) Urine Leukocyte Esterase Small (NEGATIVE) Urine RBC 0-2/hpf (0-2) Urine WBC 6-10/hpf (0-5) Urine Epithelial Cells Occasional/hpf (NONE-MOD) Urine Crystals None seen (NONE SEEN) Urine Bacteria Many/hpf (NONE-FEW) Urine Hyaline Casts None/lpf (NONE) Urine Granular Casts None seen (NONE SEEN) Urine Waxy Casts None seen (NONE SEEN) Urine Red Blood Cell Casts None seen (NONE SEEN) Urine White Blood Cell Casts None seen (NONE SEEN) Urine Mucus None seen (None Seen) Urine Trichomonas None seen (NONE SEEN) Urine Yeast None (NONE SEEN) Urinalysis Comment None Urine Culture Reflexed Indicated Hold Urine Received (Received) Neutrophils (%) (Auto) 58.1% (40-74) Lymphocytes (%) (Auto) 30.3% (14-46) Monocytes (%) (Auto) 9.6% (4-12) Eosinophils (%) (Auto) 1.4% (0-5) Basophils (%) (Auto) 0.3% (0-3) Sodium Level 136mEq/L (134-144) Potassium Level 4.2mEq/L (3.5-5.2) Chloride Level 100mEq/L (97-108) Carbon Dioxide Level 25mmol/L (18-29) Blood Urea Nitrogen 9mg/dL (6-20) Creatinine 0.52mg/dL (0.57-1.00) Estimat Glomerular Filtration Rate 197mL/min (>59) Glucose Level 116mg/dL (60-99) Calcium Level 8.4mg/dL (8.5-10.1) Magnesium Level 1.8mg/dL (1.6-2.6) Total Bilirubin 0.2mg/dL (0.0-1.2) Aspartate Amino Transf (AST/SGOT) 24U/L (0-50) Alanine Aminotransferase (ALT/SGPT) 8U/L (0-32) Alkaline Phosphatase 61U/L (25-150) Total Protein 5.9g/dL (6.4-8.4) Albumin 3.5g/dL (3.4-5.0) White Blood Count 10.3th/mm3 (3.8-10.1) Red Blood Count 3.45mil/mm3 (3.90-5.20) Hemoglobin 10.0g/dL (12.0-15.6) Hematocrit 30.9% (35.0-46.0) Mean Corpuscular Volume 89.6fL (81-100) Mean Corpuscular Hemoglobin 29.0pg (27.0-35.0) Mean Corpuscular Hemoglobin Concent 32.4% (32.0-37.0) Red Cell Distribution Width 14.2% (12.3-15.4) Platelet Count 232bil/L (150-400) Microbiology Results Urine cultures pending Discharge Medications Discharge Medications Cefuroxime Axetil (Cefuroxime) 500 Mg Tablet 500 MG PO BID Prescribed by: VALERIE REYES MD Duloxetine (Duloxetine) 60 Mg Capsule.dr 60 MG PO DAILY (Reported) Rivaroxaban (Xarelto) 10 Mg Tablet 10 MG PO DAILY Prescribed by: VALERIE REYES MD As needed ([Acetaminophen]) 325 MG TABLET 650 MG PO Q6H PRN PRN For Pain Prescribed by: VALERIE REYES MD Diazepam (Diazepam) 5 Mg Tablet 5 MG PO BID PRN PRN For Anxiety (Reported) oxyCODONE (oxyCODONE) 10 Mg Tablet 10 MG PO Q4H PRN PRN For Pain Prescribed by: VALERIE REYES MD Followup Plan Disposition: The patient is being discharged home with her mother to her mother's home. Her mother is going to care for her. Discharge Diet: No restrictions Discharge Activity: Outpatient Physical Therapy (Patient is to be toe touch, non weight bearing Right lower extremity.) Follow-up Provider: Alberto Bailey MD Follow-up with PCP in: 1 week Provider: Alberto Azul MD Follow-up in: 2 weeks Time spent Time spent on discharging this patient was greater than 35 minutes, over half of which was involved in counseling and coordination of care. Alberto Reyes MD Dec 12, 2016 23:22
== END 2016-12-12 16:17 | disposition home or self-care (01) | DRG 481 ==
LOC: SED 17:42 → OSC 20:18
PROVIDERS: ADMIT Hospitalist; ATTEND Hospitalist
PROC: 0QS604Z Reposition Right Upper Femur with Internal Fixation Device, Open Approach (ICD-10-PCS; principal; 2016-12-10 17:30)
DX: S72.21XA Displaced subtrochanteric fracture of right femur, initial encounter for closed fracture (principal); Z68.41 Body mass index [BMI] 40.0-44.9, adult; N39.0 Urinary tract infection, site not specified; X50.1XXA Overexertion from prolonged static or awkward postures, initial encounter; Y93.89 Activity, other specified; Y92.89 Other specified places as the place of occurrence of the external cause; E66.01 Morbid (severe) obesity due to excess calories; F17.210 Nicotine dependence, cigarettes, uncomplicated; F41.9 Anxiety disorder, unspecified; F32.9 Major depressive disorder, single episode, unspecified; Z98.890 Other specified postprocedural states; B96.20 Unspecified Escherichia coli [E. coli] as the cause of diseases classified elsewhere; R00.0 Tachycardia, unspecified